=== PATIENT | female | born 1995 | race Caucasian/White ===

== ENCOUNTER 2016-12-23 21:50 | Emergency (ER) | payer BC ==
[2016-12-23] MEDS ORDERED: NS 0.9% 1000 ML* 1,000 ML IV ONE (22:20)
[2016-12-23] MEDS ORDERED: Ketorolac INJ* 30 MG/ML 1 ML VIAL IV PUSH ONE (22:20)
[2016-12-23] MEDS ORDERED: Ondansetron INJ* 2 MG/ML VIAL IV ONE (22:20)
[2016-12-23 22:29] LABS: Urine Bacteria Absent (Absent); Urine Bilirubin Negative (Negative); Urine Glucose Negative (Negative); Urine Nitrite Negative (Negative)
[2016-12-23 23:17] LABS: Hematocrit 38 % (35-47); Hemoglobin 12.9 g/dl (12.0-16.0); Mean Corpuscular HGB Conc 34 g/dl (31-36); Mean Corpuscular Hemoglobin 31 pg (27-31); Mean Corpuscular Volume 92 fL (80-97); Mean Platelet Volume 9 um3 (7.4-10.4); Red Cell Distribution Width 13 % (10.5-15); White Blood Count 10.4 10^3/ul (3.5-10.8)
[2016-12-23 23:33] LABS: ALT 8 U/L (7-52); AST 17 U/L (13-39); Albumin 3.9 g/dL (3.2-5.2); Alkaline Phosphatase 49 U/L (34-104); Anion Gap 7 mmol/L (2-11); Blood Urea Nitrogen 9 mg/dL (6-24); CO2 Carbon Dioxide 24 mmol/L (22-32); Calcium 8.7 mg/dL (8.6-10.3); Chloride 105 mmol/L (101-111); EGFR African American 114.3 (>60); EGFR Non-African American 88.9 (>60); Glucose 101 mg/dL (70-100); Lipase 33 U/L (11.0-82.0); Potassium 2.9 mmol/L (3.5-5.0); Sodium 136 mmol/L (133-145); Total Protein 6.9 g/dL (6.4-8.9)
[2016-12-23] MEDS ORDERED: Ciprofloxacin TAB* 500 MG PO ONE (23:43)
--- NOTE | 2016-12-23 23:45 | ED ---
GI/ HPI - HPI Summary HPI Summary: 21F presents with hematuria and dysuria today. She does not have a history of UTI. She also admits to frequency and urgency. She admits to flank pain and generalized abdominal pain. She admits to a fever. She has never had these symptoms before. She admits to nausea but denies any diarrhea, constipation, or vomiting. She denies any previous abdominal surgeries. She denies any one else being sick or any new foods. She is on nuvaring for control. - History of Current Complaint Chief Complaint: EDAbdPain Time Seen by Provider: 12/23/16 22:03 Stated Complaint: POSSIBLE UTI Pain Intensity: 5 - Allergy/Home Medications Allergies/Adverse Reactions: Allergies Allergy/AdvReac Type Severity Reaction Status Date / Time No Known Allergies Allergy Verified 12/23/16 21:55 PMH/Surg Hx/FS Hx/Imm Hx Endocrine/Hematology History: Denies: Hx Anticoagulant Therapy Cardiovascular History: Denies: Hx Hypertension Infectious Disease History: No Infectious Disease History: Reports: Traveled Outside the [place] in Last 30 Days - [place] - Family History Known Family History: Positive: Other - no GI fam history - Social History Alcohol Use: Occasionally Substance Use Type: Reports: None Smoking Status (MU): Never Smoked Tobacco Review of Systems Negative: Fever Negative: Chest Pain Negative: Shortness Of Breath Positive: Abdominal Pain, Nausea. Negative: Vomiting, Diarrhea Positive: dysuria, frequency, flank pain All Other Systems Reviewed And Are Negative: Yes Physical Exam Triage Information Reviewed: Yes Vital Signs On Initial Exam: Initial Vitals Temp Pulse Resp BP Pulse Ox 99.3 F 86 20 118/86 100 12/23/16 21:55 12/23/16 21:55 12/23/16 21:55 12/23/16 21:55 12/23/16 21:55 Vital Signs Reviewed: Yes Appearance: Positive: Pain Distress Skin: Positive: Warm, Dry Head/Face: Positive: Normal Head/Face Inspection Eyes: Positive: Normal, Conjunctiva Clear Respiratory/Lung Sounds: Positive: Clear to Auscultation, Breath Sounds Present Cardiovascular: Positive: Normal, RRR Abdomen Description: Positive: Soft, CVA Tenderness (L), Other: - diffusely tender on exam, no rebound Bowel Sounds: Positive: Present - Daniella Coma Scale Coma Scale Total: 15 Diagnostics - Vital Signs Vital Signs Temp Pulse Resp BP Pulse Ox 12/23/16 21:55 99.3 F 86 20 118/86 100 - Laboratory Lab Results: Lab Results 12/23/16 12/23/16 12/23/16 Range/Units 22:11 23:08 23:08 WBC 10.4 (3.5-10.8) 10^3/ul RBC 4.20 (4.0-5.4) 10^6/ul Hgb 12.9 (12.0-16.0) g/dl Hct 38 (35-47) % MCV 92 (80-97) fL MCH 31 (27-31) pg MCHC 34 (31-36) g/dl RDW 13 (10.5-15) % Plt Count 169 (150-450) 10^3/ul MPV 9 (7.4-10.4) um3 Neut % (Auto) 70.6 (38-83) % Lymph % (Auto) 21.2 L (25-47) % Hart % (Auto) 6.8 (1-9) % Eos % (Auto) 0.8 (0-6) % Baso % (Auto) 0.6 (0-2) % Absolute Neuts (auto) 7.4 (1.5-7.7) 10^3/ul Absolute Lymphs (auto) 2.2 (1.0-4.8) 10^3/ul Absolute Monos (auto) 0.7 (0-0.8) 10^3/ul Absolute Eos (auto) 0.1 (0-0.6) 10^3/ul Absolute Basos (auto) 0.1 (0-0.2) 10^3/ul Absolute Nucleated RBC 0.01 10^3/ul Nucleated RBC % 0 Sodium 136 (133-145) mmol/L Potassium 2.9 L (3.5-5.0) mmol/L Chloride 105 (101-111) mmol/L Carbon Dioxide 24 (22-32) mmol/L Anion Gap 7 (2-11) mmol/L BUN 9 (6-24) mg/dL Creatinine 0.82 (0.51-0.95) mg/dL Est GFR ( Amer) 114.3 (>60) Est GFR (Non-Af Amer) 88.9 (>60) BUN/Creatinine Ratio 11.0 (8-20) Glucose 101 H (70-100) mg/dL Calcium 8.7 (8.6-10.3) mg/dL Total Bilirubin 0.60 (0.2-1.0) mg/dL AST 17 (13-39) U/L ALT 8 (7-52) U/L Alkaline Phosphatase 49 (34-104) U/L C-React Prot High Sens 2.49 mg/L Total Protein 6.9 (6.4-8.9) g/dL Albumin 3.9 (3.2-5.2) g/dL Globulin 3.0 (2-4) g/dL Albumin/Globulin Ratio 1.3 (1-3) Lipase 33 (11.0-82.0) U/L Beta HCG, Quant < 0.60 mIU/mL Urine Color Straw Urine Appearance Clear Urine pH 9.0 (5-9) Ur Specific [place] 1.002 L (1.010-1.030) Urine Protein 2+(100 mg/dl) H (Negative) Urine Ketones Negative (Negative) Urine Blood 3+ H (Negative) Urine Nitrate Negative (Negative) Urine Bilirubin Negative (Negative) Urine Urobilinogen Negative (Negative) Ur Leukocyte Esterase 3+ H (Negative) Urine WBC (Auto) 1+(6-10/hpf) H (Absent) Urine RBC (Auto) Trace(0-2/hpf) (Absent) Urine Bacteria Absent (Absent) Urine Glucose Negative (Negative) Result Diagrams: 12/23/16 23:08 12/23/16 23:08 Lab Statement: Any lab studies that have been ordered have been reviewed, and results considered in the medical decision making process. - Ultrasound No standard instances Ultrasound Interpretation: Positive (See Comments) - slight thicking and hyperemia of bladder wall. consider cysitis, normal appearance of both kidneys with normal ureteral jets seen bilaterally. Ultrasound Interpretation Completed By: Radiologist GIGU Course/Dx - Course Course Of Treatment: 21F presents with hematuria and dysuria today. She does not have a history of UTI. She also admits to frequency and urgency. She admits to flank pain and generalized abdominal pain. She admits to a fever. She has never had these symptoms before. She admits to nausea but denies any diarrhea, constipation, or vomiting. on exam diffuse abdominal tenderness and pos CVA left. u/s shows possible cystitis. u/a shows leuko +3, will treat as pyelo due to flank pain. patient understands and agrees with plan - Diagnoses Differential Diagnoses - Female: Pyelonephritis, Renal Calculi, Urinary Tract Infection Provider Diagnoses: Pyelonephritis Discharge - Discharge Plan Condition: Good Disposition: HOME Prescriptions: Ciprofloxacin TAB* [Cipro 500 MG TAB*] 500 mg PO BID #27 tab Ondansetron ODT TAB* [Zofran 4 MG Odt TAB*] 4 mg PO Q6H PRN #16 tab.odt PRN Reason: Nausea Patient Education Materials: Kidney Infection (ED) Referrals: Fouzia Fritz MD [Primary Care Provider] - Additional Instructions: Take antibiotic twice a day for 14 days, starting tomorrow Take zofran under tongue every 6 hours as need for nausea Drink plenty of water Take Tylenol or ibuprofen every 6 hours as needed for pain and fever Follow up with primary after stop antibiotics Return to ED if develop severe vomiting, fever not respond to ibuprofen, or any new or worsening symptoms
[2016-12-24 00:05] VITALS: BP 103/57
--- NOTE | 2016-12-24 07:31 | RAD ---
INDICATION: Left flank pain, urinary tract infection symptoms. COMPARISON: There are no prior studies available for comparison. TECHNIQUE: Multiple real-time images of the kidneys and urinary bladder were obtained. FINDINGS: The kidneys are normal in size shape and echogenicity. The right kidney measured 10.8 x 4.1 x 5.3 cm and the left kidney measured 11.0 x 3.8 x 4.5 cm. No significant focal abnormality or hydronephrosis was present. The bladder is normal in contour. No intraluminal abnormalities are seen. There is mild diffuse bladder wall thickening and hyperemia within the bladder wall. There is also debris within the bladder. No calculi are seen. There are bilateral ureteral jets present within the urinary bladder. The prevoid volume was 178 ml and a post void residual was 4 ml. IMPRESSION: DIFFUSE THICKENING OF THE BLADDER WALL AND HYPEREMIA SUGGESTIVE OF CYSTITIS. RECOMMEND CLINICAL CORRELATION.
--- NOTE | 2016-12-25 09:00 | PN ---
Progress Note - Progress Note Date of Service: 12/23/16 Note: Patient was diagnosed and treated for UTI. Preliminary results grew 50-75,000 of E. Coli. Was placed on Cipro. Will wait for final culture susceptibility results. No changes needed at this time.
== END 2016-12-24 00:13 | disposition home or self-care (01) ==
LOC: ED 21:50
DX: N10 Acute pyelonephritis (principal); R11.0 Nausea; Z32.02 Encounter for pregnancy test, result negative
CPT/HCPCS: 36415; 76770; 80053; 81003; 81015; 83690; 84702; 85025; 86141; 87077; 87086; 87186; 96361; 96374; 96375; 99282; A9270-GY; J1885; J2405